=== PATIENT | male | born 1965 | race Caucasian/White ===

== ENCOUNTER 2024-08-01 19:23 | Emergency (ER) | payer SELFPAY ==
[2024-08-01] MEDS ORDERED: Sodium Chloride 0.9% 10 ML Syringe FLUSH PRN (19:59)
[2024-08-01 20:22] LABS: BASOPHILS PERCENT AUTO 0.4 % (0.0-1.0); EOSINOPHILS ABSOLUTE AUTO 0.1 K/mm3 (0.0-0.4); EOSINOPHILS PERCENT AUTO 1.2 % (0.0-6.0); HEMATOCRIT 46.6 % (42.0-52.0); HEMOGLOBIN 15.5 gm/dl (14.0-18.0); IMMATURE GRAN ABSOLUTE AUTO 0.05 K/mm3 (0.00-0.05); IMMATURE GRAN PERCENT AUTO 0.6 % (0.0-0.4); LYMPHOCYTES ABSOLUTE AUTO 1.9 K/mm3 (1.0-4.8); LYMPHOCYTES PERCENT AUTO 23.4 % (24.0-44.0); MEAN CORPUSCULAR HEMOGLOBIN 30.2 pg (28.0-32.0); MEAN CORPUSCULAR HGB CONC 33.3 g/dl (32.0-36.0); MEAN CORPUSCULAR VOLUME 90.8 fl (83.0-99.0); MEAN PLATELET VOLUME 8.5 fl (9.4-12.4); MONOCYTES ABSOLUTE AUTO 0.8 K/mm3 (0.0-0.8); MONOCYTES PERCENT AUTO 10.3 % (0.0-8.0); NEUTROPHILS ABSOLUTE AUTO 5.3 K/mm3 (1.8-7.7); NEUTROPHILS PERCENT AUTO 64.1 % (41.0-71.0); PLATELET COUNT,PLT 246 K/mm3 (150-400); RED BLOOD CELL COUNT 5.13 M/mm3 (4.52-5.90); WHITE BLOOD CELL COUNT,WBC 8.19 K/mm3 (3.9-11.3)
[2024-08-01 20:42] LABS: A/G RATIO 0.7 (1-2); ALBUMIN 3.1 g/dl (3.4-5.0); ANION GAP 11.8 (5-15); BILIRUBIN TOTAL 0.4 mg/dL (0.2-1.0); BUN/CREATININE RATIO 16.2 (14-18); CALCIUM 8.8 mg/dL (8.5-10.1); CREATININE 1.3 mg/dL (0.7-1.3); EST CRCL DRUG DOSING (CG) 68.81 mL/min; POTASSIUM,K 3.8 mEq/L (3.5-5.1); PROTEIN TOTAL,TP 7.3 g/dl (6.4-8.2)
[2024-08-02] MEDS: Sodium Chloride 0.9% 1,000 ML IV ONE (00:12)
[2024-08-02] MEDS: Piperacillin/Tazobactam 4.5 GM in Sodium Chloride 0.9% 100 ML IV ONE (00:13)
[2024-08-02] MEDS: Iopamidol 755 Mg/ML 100 ML Bottle IVPUSH ONE (00:19)
== END 2024-08-02 07:10 | disposition home or self-care (01) ==
LOC: JD.ED 19:23
DX: L03.113 Cellulitis of right upper limb (principal); M70.21 Olecranon bursitis, right elbow; Z79.899 Other long term (current) drug therapy
CPT/HCPCS: 36415; 73206; 80053; 85025; 87040; 93971; 96365; 99284; J2543; J7030; Q9967

== ENCOUNTER 2024-09-13 06:00 | Day surgery (SDC) | payer MEDICARE, OTHER ==
[~2024-09-13 06:00] MED LIST: Sodium Chloride 0.9% 10 ML Syringe FLUSH PRN; Sodium Chloride 0.9% 10 ML Syringe FLUSH SCH
[2024-09-13] MEDS ORDERED: Propofol 200 MG/20 ML SDV ONE (06:08)
[2024-09-13] MEDS ORDERED: Midazolam 1 MG/ML 2 ML SDV ONE (06:08)
[2024-09-13] MEDS: Lactated Ringers 1,000 ML IV SCH (06:15)
[2024-09-13] MEDS ORDERED: Lidocaine 1% 4 ML ONE (06:52)
[2024-09-13] MEDS: Lidocaine 1% 10 ML MDV ONE (07:12)
[2024-09-13] MEDS: Bupivacaine 0.25% 10 ML SDV ONE (07:12)
== END 2024-09-13 08:45 | disposition home or self-care (01) ==
LOC: JD.SDS 06:00
PROVIDERS: ATTEND Orthopaedic Surgery
DX: G56.11 Other lesions of median nerve, right upper limb (principal); I10 Essential (primary) hypertension; N40.0 Benign prostatic hyperplasia without lower urinary tract symptoms; Z87.891 Personal history of nicotine dependence; Z79.899 Other long term (current) drug therapy
CPT/HCPCS: 64721; J0665; J2003; J2250; J2704; J7120; 01810